=== PATIENT | female | born 1945 | race Caucasian/White ===

== ENCOUNTER → 2017-09-29 14:36 | Outpatient (CLI) | payer MEDICARE, SELFPAY | PROVIDERS: Family Provider Family Medicine Geriatric Medicine; PCP Family Medicine Geriatric Medicine; Visit Provider Anesthesiology Pain Medicine | DX: F11.20 Opioid dependence, uncomplicated (principal) ==

== ENCOUNTER → 2017-12-29 09:13 | Outpatient (CLI) | payer MEDICARE, SELFPAY ==
[2017-12-29 17:29] LABS: Absolute Lymphocyte Count 1.76 X10^3/ul (0.83-4.51); Absolute Neutrophil Count 4.9 X10^3/uL (2.0-7.7); Basophil# 0.01 X10^3/uL; Basophil% 0.1 % (0-1); Eosinophils% 1.3 % (0-5); Hemoglobin 14.4 g/dl (12.0-15.0); Lymphocyte # 1.76 X10^3/ul (4.0); Lymphocyte % 23.6 % (19-41); Mean Corp Hgb Conc 32.7 g/gl (32-36); Mean Corpuscular Hgb 32.6 pg (27.0-32.0); Mean Corpuscular Volume 99.5 fL (81-99); Mean Platelet Vol. 10.8 fl (6.2-12.0); Monocyte# 0.68 X10^3/uL; Monocyte% 9.1 % (0-10); Neutrophil % 65.6 % (47-70); Platelet Count 191 K/mm3 (150-450); RBC Distribution Width CV 14.6 % (11.6-14.6); RBC Distribution Width SD 52.4 fl (35.1-43.9); Red Blood Count 4.42 M/mm3 (4.2-5.4); White Blood Count 7.5 K/mm3 (4.4-11.0)
[2017-12-29 17:45] LABS: ALB/GLOB Ratio 1.1 RATIO (0.9-2.4); AST(SGOT) 19 U/L (15-37); Alanine Aminotransfer ALT/SGPT 22 U/L (13-56); Albumin, Serum 3.6 g/dL (3.2-5.0); Alkaline Phosphatase 88 U/L (45-117); Anion Gap 10 (5-15); BUN 20 mg/dL (7-18); BUN/Creat Ratio 22.1 RATIO (10-20); Calcium,Total 8.6 mg/dL (8.5-10.1); Chloride 115 mmol/L (98-107); EST Glomerular Filtration Rate 65 mL/min (>60); Est Glom Filt Rate - Afr Amer 79 mL/min (>60); Globulin 3.4 g/dL (2.2-4.2); Glucose 79 mg/dL (74-106); Potassium 3.7 mmol/L (3.5-5.1); Sodium Level 147 mmol/L (136-145); Thyroid Stim Hormone (TSH) 3.03 uIU/mL (0.358-3.74)
[2017-12-29 17:50] LABS: POSITIVE COUNT NO; POSITIVE DIFFERENTIAL NO; POSITIVE MORPHOLOGY NO
[2017-12-30 08:57] LABS: Vitamin D,25 Hydroxy 42.8 ng/mL (29.95-100.01)
== END ==
PROVIDERS: Family Provider Family Medicine Geriatric Medicine; PCP Family Medicine Geriatric Medicine; Visit Provider Family Medicine Geriatric Medicine
DX: E55.9 Vitamin D deficiency, unspecified (principal); R53.83 Other fatigue
CPT/HCPCS: 36415; 80053; 82306; 84443; 85025

== ENCOUNTER 2018-01-11 15:08 | Outpatient (RCR) | payer MEDICARE, SELFPAY ==
--- NOTE | 2018-01-11 16:09 | HP.PTEVAL_ITS ---
Patient's Visit Information MIRACLE WILSON is a 72 year old F referred to Physical Therapy by Abhay Real with a diagnosis of gait instability. Date of Evaluation: 01/11/18 Physical Therapist: Camden Vega DPT, OC - Visit Plan Frequency: 2 visits Duration: 1 Week Plan: Pt unable to afford co pay for approp frequency of PT. Agreeable to 2 more initial visists to teach and ensure safety with HEP for LE strength seated and at counter as able and for weight shifting to R LE. Include LB flexion ex also. Plese ensure safety and give pics. Pt then will perform at home and f/u a month down the road for recheck. I gave her AROM ankles, knees and hips and arm elevation today to do at each commercial. - Subjective Subjective: Legs are hurting terrible and limping for a couple years. Not getting around well. Chiropractor thinks her back is causing this. Has had back trouble for years with discs. worsening to the point where she cannot stand. Can't stand very long because back hurts(30 min) because she tired and painful in R Leg, L leg is fine. Sitting is not painful. Back does not hurt up and moving but it used to. Spends the day with boyfriend in trailer. 5 steps to enter with railing and needs to take it real slow. One step at t jaziel with L only. Does housework as best she can and dresses and bathes and bathroom by herself but has boyfriend if she needs help. Does not work, retired. Spends day watching TV and no regular exercises. Has fallen several times but none in the last few months. No spinning, no neuropathy. Legs may give out on her but a poor historian with the falls. Calls squad who helps her up. Uses wh walker 100% of time. - Pain R LEG Pain Intensity (Out of 10): 0 Pain Intensity Range: 0, 9 Comment: none seated. Pain is near knee. - Objective R pelvis elevated and L femur looks longer in sitting, R hip higher in stance and keeps heel off ground, does not trust R LE. R hip weak with marching in chair. sit to stand with two UE mod I and slow. Needs wh walker to stand for confidence, can stand without UE assist when cued. Will not take a step without wh walker, scared and untrusting of R LE. Stand to sit with two UE mod I. Walks 80 feet with wh walker today. Able to step up one step with either foot with walker but complete reliance on UE adn poor trust of R LE. Strength LE R: hip flexion 3, abd 3, ext 3, knee flexion and ext 3+ and ankle 4-. L hip 3+ and knees 3+ and ankles 4-. reflexes 0/3 B patella and achilles. Sensation WNL to gross light touch LE. LB AROM poor in extension, flexion is max limited and distrusting. SB R and L are max limited. Pt is afraid to move but not increased pain. - Goals Goal 1:: Walk 150 feet with wh walker and one step with min UE assist without increased pain Goal Time Frame: 4-6 Weeks Goal 2:: I approp HEP for LE strength and LB ROM and general activity Goal Time Frame: 4-6 Weeks Goal 3:: Pt report 50% improvement in R LE pain and 4/10 at worst. Goal Time Frame: 4-6 Weeks Goal 4:: Walk 5 steps without AD with HVAC SERVICES PROFESSIONAL mod I to show WB R LE confidence. Goal Time Frame: 4-6 Weeks - Rehabilitation Potential Physical Therapy Diagnosis: gait instability, poor trust R LE and weakness / pain here are problematic. Rehabilitation Potential: Questionable - Anticipated Interventions Patient/Client Instruction: Educate patient on: Condition, Plan of Care For the Purpose of:: To decrease pain, To increase ROM, To improve nutrient delivery to tissue, To improve ability of physical actions for home/community/ work/leisure Therapeutic Exercise to Include: Strength training, Balance training, Gait and locomotor training, Active ROM For the Purpose of:: To decrease pain, To decrease swelling/inflammation, To increase ROM, To improve nutrient delivery to tissue, To improve ability of physical actions for home/community/work/leisure, To improve gait and locomotor functions Thank you for the opportunity to evaluate your patient. For Medicare and Medicare HMO plans, please review the plan of care and approve it. It will need to be FAXED BACK to us at [phone] for Medicare purposes. Please let me know if there are questions or concerns regarding this plan of care. Physician Signature: Date:
--- NOTE | 2018-03-14 11:21 | HP.PTDCNRP_ITS ---
HP - Discharge Summary (1) - Patient Information MIRACLE WILSON was seen in my office for initial evaluation on 01/11/18. The following Plan of Care was established for this patient: Initial Frequency: 2 visits Initial Duration: 1 Week - Anticipated Interventions Patient/Client Instruction: Educate patient on: Condition, Plan of Care For the Purpose of:: To decrease pain, To increase ROM, To improve nutrient deli very to tissue, To improve ability of physical actions for home/community/work/leisure Therapeutic Exercise to Include: Strength training, Balance training, Gait and locomotor training, Active ROM For the Purpose of:: To decrease pain, To decrease swelling/inflammation, To increase ROM, To improve nutrient delivery to tissue, To improve ability of physical actions for home/community/work/leisure, To improve gait and locomotor functions This patient was last seen in our office 01/11/18. Pertinent comments regarding their Physical therapy will appear below: Pt seen for one visit and POC established for a couple visits(due to co-pay) to teach HEP. Patient did not attend either of those visits adn I will discontinue him due to nonattendance. At this point I will be discontinuing this patient from physical therapy. I would be happy to see this patient again in the future if found appropriate by the physician. Thank you! Camden Vega, DPT, OC
== END 2018-01-11 19:00 | disposition home or self-care (01) ==
LOC: PT 15:08
PROVIDERS: Family Provider Family Medicine Geriatric Medicine; PCP Family Medicine Geriatric Medicine; Visit Provider Family Medicine Geriatric Medicine
DX: R26.9 Unspecified abnormalities of gait and mobility (principal)
CPT/HCPCS: 97110; 97163

== ENCOUNTER 2018-10-23 15:06 | Observation (INO) | payer MEDICARE, SELFPAY ==
[2018-10-23 15:07] VITALS: BP 124/90; PULSE 115; RESP 16; TEMP 36.1; O2SAT 94; BMI 27.4
--- NOTE | 2018-10-23 16:43 | EKG12_ITS ---
Test Reason : ALT LOC Blood Pressure : / mmHG Vent. Rate : 089 BPM Atrial Rate : 089 BPM P-R Int : 182 ms QRS Dur : 098 ms QT Int : 372 ms P-R-T Axes : 054 137 028 degrees QTc Int : 452 ms Normal sinus rhythm Right axis deviation Abnormal ECG Low voltage Confirmed by MARIA TERESA HOLLEY ([id number]), industrial editor MILTON LYLE ([id number]) on 10/27/2018 11:18:03 AM Referred By: Cuong Alcazar Confirmed By:MARIA TERESA HOLLEY
--- NOTE | 2018-10-23 16:43 | CT_ITS ---
STUDY: CT BRAIN WITHOUT CONTRAST REASON FOR EXAM: Female, 72 years old. Altered mental status, dementia RADIATION DOSAGE (If Supplied By Facility): CTDIvol = ( 44.99 ) mGy, DLP = ( 762.36 ) mGycm TECHNIQUE: Transaxial CT imaging of the brain was performed without administration of intravenous contrast material. Individualized dose optimization techniques were used for this CT. COMPARISON: MRI February 11, 2017. FINDINGS: Normal soft tissue structures. Normal calvarium. There is mild cerebral atrophy with widening of the extra-axial spaces and ventricular dilatation. Normal white matter tracts of the cerebral hemispheres. There are small punctate calcifications of the basal ganglia which are seen in the aging brain as a normal variant. Normal brainstem. Normal cerebellum. There is no intracranial hemorrhage. There are no findings of an acute ischemic infarction. Normal visualized paranasal sinuses. CT/Brain/Head without Contrast IMPRESSION: Minimal atrophy no evidence of acute hemorrhage infarct or edema. Electronically Signed: Kathryn Espinoza MD at 17:39 EDT Tel , Service support ,
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
[2018-10-23 16:47] VITALS: PULSE 93; RESP 16; O2SAT 97
--- NOTE | 2018-10-23 17:30 | RAD_ITS ---
STUDY: X-RAY CHEST REASON FOR EXAM: Female, 72 years old. Altered level of consciousness TECHNIQUE: PA and lateral views of the chest. COMPARISON: None. FINDINGS: The lungs are clear and expanded. There is no demonstrated pleural abnormality. There is mild cardiomegaly. Normal mediastinum and aniket. Normal visualized pulmonary arteries. Normal visualized aortic arch and descending thoracic aorta. There are diffuse degenerative changes of the visualized thoracic spine. Normal visualized ribs, clavicles, and shoulders. There is no demonstrated abnormality of the visualized soft tissue structures of the upper abdomen. RAD/Chest PA and Lateral IMPRESSION: Mild cardiac enlargement, no evidence of acute focal infiltrate. Electronically Signed: Kathryn Espinoza MD at 17:40 EDT Tel , Service support ,
[2018-10-23 17:35] LABS: Absolute Lymphocyte Count 1.52 X10^3/ul (0.83-4.51); Basophil# 0.01 X10^3/uL; Basophil% 0.1 % (0-1); Eosinophil# 0.07 X10^3/uL; Hematocrit 43.8 % (37-47); Hemoglobin 14.5 g/dl (12.0-15.0); Lymphocyte # 1.52 X10^3/ul (4.0); Lymphocyte % 21.3 % (19-41); Mean Corp Hgb Conc 33.1 g/gl (32-36); Mean Corpuscular Volume 105.8 fL (81-99); Mean Platelet Vol. 11.3 fl (6.2-12.0); Monocyte# 0.56 X10^3/uL; Monocyte% 7.8 % (0-10); Neutrophil # 4.98 X10^3/uL (2.7-7.7); Neutrophil % 69.7 % (47-70); Platelet Count 193 K/mm3 (150-450); RBC Distribution Width CV 15.3 % (11.6-14.6); RBC Distribution Width SD 59.5 fl (35.1-43.9); Red Blood Count 4.14 M/mm3 (4.2-5.4); White Blood Count 7.2 K/mm3 (4.4-11.0)
[2018-10-23 17:36] LABS: POSITIVE COUNT NO; POSITIVE DIFFERENTIAL NO; POSITIVE MORPHOLOGY NO
[2018-10-23 17:49] LABS: ALB/GLOB Ratio 1.3 RATIO (0.9-2.4); AST(SGOT) 22 U/L (15-37); Alanine Aminotransfer ALT/SGPT 21 U/L (13-56); Albumin, Serum 3.9 g/dL (3.2-5.0); Alkaline Phosphatase 83 U/L (45-117); Anion Gap 5 (5-15); BUN 21 mg/dL (7-18); BUN/Creat Ratio 22.9 RATIO (10-20); Calcium,Total 8.7 mg/dL (8.5-10.1); Chloride 114 mmol/L (98-107); Creatinine, Serum 0.92 mg/dL (0.55-1.02); EST Glomerular Filtration Rate 64 mL/min (>60); Est Glom Filt Rate - Afr Amer 77 mL/min (>60); Estimated Creatinine Clearance 44.36 ml/min; Globulin 2.9 g/dL (2.2-4.2); Glucose 85 mg/dL (74-106); Potassium 3.1 mmol/L (3.5-5.1); Protein, Total 6.8 g/dL (6.4-8.2); Sodium Level 143 mmol/L (136-145)
[2018-10-23 18:08] LABS: Mucous, Urine 0 SEEN /hpf (<or=2+)
[2018-10-23 18:13] LABS: Color, Urine Yellow (Yellow); Glucose, Dipstick Normal (Normal); Ketone-Dipstick Negative (Negative); Leukocyte Esterase-Dipstick 500 /ul (Negative); Nitrite-Dipstick Negative (Negative); Occult Blood-Urine 25 /ul (Negative); Protein-Dipstick 30 mg/dl (Negative); Urine Bilirubin Dipstick Negative (Negative); Urine Clarity Cloudy (Clear); Urine Urobilinogen Normal (Normal)
[2018-10-23 18:31] LABS: Bacteria 4+ /hpf (None Seen); Red Blood Cells-Urine 0-5 SEEN /hpf (0-5); Squamous Epithelial Cells - UA 0-5 SEEN /hpf (5-10); White Blood Cells 10-25 SEEN /hpf (0-5)
--- NOTE | 2018-10-23 18:34 | CASEMGMT ---
RN LIZZ Assessment Introduced role of RN LIZZ to patient and patient [id number] Tamanna at bedside.? Patient is alert, Pleasantly Confused and participated in assessment to best of ability, most information and confirmation of information obtained from Dtr-in-law. ?Care providers, pharmacy, and demographics verified. Presentation: Per son increased confusion, h/o Dementia. Patient has had frequent falls and declining rapidly with ambulation with unsteady gait per Dtr-in-law. Re-Admit: No Barriers/Issues: Patient boyfriend/long time zoology technical officer is on Hospice at [facility] in Memory [facility]- [place]. Patient states that is where she wants to go on DC and states will not go anywhere else. CM did explain criteria for skilled need and if no skilled need it would be private pay. Patient kept referring wanting an Aide on DC for assistance with Bathing, CM explained that an Aide comes to current home, which patient adamant will not go back home. Wants to be with boyfriend until he passes. Per Dtr-In-Law patient does visit him at facility, however Dtr-in-law cautious on what to say in front of patient as she appears may get agitated. PCP: Abhay Real Chi Specialists: Pain Management, has had Steroid injection in past last one June 2017, told per Dr Real has Neuropathy and referred to some specialist. Preferred Pharmacy: [facility] [place] Insurance: [facility] Rx Benefit:?Yes LNOK: Son and Dtr-in-law Wm/Tamanna Pena LW/HPOA: No Living Arrangements:? Lives with son and Dtr-in-law in a Home, 2 steps to enter. ADL?s: Ambulates with a walker, Requires assistance with meals, stand by assist with bathing. Transportation: Son & Dtr-in-law DME: Walker, Shower Chair HHC: Past, [place] SNF: None Goal: See Above Issue DC PLAN: TBD. No anticipated needs as condition of s/s appear chronic in nature. CHRISTI Rey
[2018-10-23] MEDS: Cefazolin 1 GM/50 ML BAG IV (19:08)
[2018-10-23 19:09] VITALS: BP 112/81; PULSE 107; RESP 16; O2SAT 93
[2018-10-23 20:04] VITALS: BMI 32.6
[2018-10-23 20:12] VITALS: BP 108/77; PULSE 95; RESP 16; TEMP 36.7; O2SAT 96
[2018-10-23 20:17] VITALS: BMI 32.7
[2018-10-23 20:34] LABS: Thyroid Stim Hormone (TSH) 1.73 uIU/mL (0.358-3.74)
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
[2018-10-23] MEDS: Tolterodine Tartrate 4 MG CAP.SA PO (20:40)
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
[2018-10-23] MEDS: Acetaminophen 325 MG Tablet 650 MG PO (22:41)
[2018-10-24 04:35] VITALS: BP 103/68; PULSE 85; RESP 17; TEMP 36.6; O2SAT 98
[2018-10-24 05:59] LABS: Anion Gap 9 (5-15); BUN 23 mg/dL (7-18); BUN/Creat Ratio 27.2 RATIO (10-20); Calcium,Total 8.2 mg/dL (8.5-10.1); Chloride 117 mmol/L (98-107); Creatinine, Serum 0.85 mg/dL (0.55-1.02); EST Glomerular Filtration Rate 70 mL/min (>60); Est Glom Filt Rate - Afr Amer 85 mL/min (>60); Estimated Creatinine Clearance 50.22 ml/min; Glucose 78 mg/dL (74-106); Potassium 3.6 mmol/L (3.5-5.1); Sodium Level 147 mmol/L (136-145)
[2018-10-24 09:45] VITALS: BP 106/76; PULSE 101; RESP 16; TEMP 36.5; O2SAT 94
[2018-10-24] MEDS: Enoxaparin 40 MG/0.4 ML Syringe SC (09:47)
[2018-10-24] MEDS: Escitalopram Oxalate 10 MG Tablet PO (09:47)
[2018-10-24] MEDS: Ciprofloxacin 400 MG/200 ML BAG 200 MG IV ×2 (09:48→21:00)
[2018-10-24] MEDS: 0.9% NaCl IVPB Med Flush (250 mL) 15 ML IV (09:52)
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
--- NOTE | 2018-10-24 14:14 | CASEMGMT ---
Social Work Note Pt gave this worker permission to speak with her son Wm. Wm present at [facility]. JOHAN met with Wm, introduced self and role at [facility]. JOHAN updated Wm that pt is wanting [facility] at discharge, that [facility] isn't in contract with [employer], but that pt could potentially go to [facility] under pending medicaid number. JOHAN informed Wm that Pt will need to completed Medicaid application and then this worker would fax application to [facility] and then try to get pt to [facility] under pending medicaid number. JOHAN informed Wm though that if pt doesn't qualify for Medicaid, pt would be responsible to pay bill for stay at [facility]. JOHAN did educate Wm on TCU at [facility], Wm states that [facility] would probably be better for pt so she is able to see Riaz. Riaz states that his Tamanna should be able to assist with Medicaid application if needed. JOHAN received call from Debbie at [facility] stating they are able to accept pt under pending medicaid. JOHAN met with pt, assisted pt with completing Medicaid application. Pt unsure on income that Wm and Tamanna make a month, gave this worker permission to call Tamanna. JOHAN placed a call to pt's daughter in law Tamanna, left message requesting call back to provided information regarding income. JOHAN placed a call to Tamanna Rios at [facility], updated her on pt wanting to go to [facility] under pending medicaid. JOHAN faxed Medicaid application to Tamanna Rios at [facility]. Plan: SW Will need to get pending medicaid number from [facility] and then complete LOC for pt to go to [facility]. Reina Connelly VP REVENUE CYCLE, REPLENISHER
[2018-10-24 15:47] VITALS: BP 101/76; PULSE 86; RESP 16; TEMP 36.7; O2SAT 97
--- NOTE | 2018-10-24 16:06 | CASEMGMT ---
RN LIZZ NOTE: To room to talk with pt. Pt sitting up in recliner chair. Reviewed ROSS form with pt and questions answered. Denies having any further questions at this time. Form signed by pt, copy made and placed on chart, and pt given original. Pt also given [facility] inpatient or outpatient info sheets. Pt instructed to ask for CM if she has any further questions. Pt voices understanding.
--- NOTE | 2018-10-24 16:11 | CASEMGMT ---
Social Work Note Pt had questions regarding SENIOR LIVING and Medicaid. SW met with pt. SW informed pt that once pt gets to [facility], they have an option of SENIOR LIVING should pt need SENIOR LIVING once she is no longer skillable. SW informed pt that there will be at SW at [facility] that will be able to meet with pt in regards to discharge plans from [facility] and will continue to assist pt with Medicaid process. Pt states understanding. Plan: [facility] pending LOC. SW will need medicaid number and will need to complete LOC. Reina Connelly CHEMICAL APPLICATOR, PREFORM PLATE MAKER
[2018-10-24 20:54] VITALS: BP 101/70; PULSE 79; RESP 16; TEMP 36.7; O2SAT 93
[2018-10-24] MEDS: Tolterodine Tartrate 4 MG CAP.SA PO (21:02)
[2018-10-24] MEDS: 0.9% NaCl Peripheral Flush Adult/Peds IV (22:23)
[2018-10-25 03:00] VITALS: BP 106/68; PULSE 80; RESP 16; TEMP 36.3; O2SAT 96
--- NOTE | 2018-10-25 09:10 | CASEMGMT ---
Social Work Note JOHAN received message from pt's KOURTNEY Nolen. Per Tamanna pt had to move in with them because pt didn't have anywhere else to go. Tamanna states that they don't pay for anything for pt and pt doesn't help them out. Tamanna states if she was to provide her and Wm' income, pt wouldn't qualify for Medicaid and states she doesn't want to provide income information. JOHAN placed a call to Tamanna Rios at [facility], updated her on above information. Tamanna states should be fine without son and DIL income information but will need to review application. Tamanna states to hopefully have pending medicaid number this morning. Plan: [facility] pending medicaid number and LOC Reina Connelly EXCHANGE ADMINISTRATOR, MEDICAL INSURANCE CODING SPECIALIST
[2018-10-25 10:00] VITALS: BP 137/76; PULSE 96; RESP 16; TEMP 36.7; O2SAT 96
--- NOTE | 2018-10-25 10:37 | PCM.EXTCARCO ---
- Diet 10/23/18 19:55 Diet: Regular Diet - Routine Orders/Code Status Suppository Type: Dulcolax 10mg Suppository Frequency: Daily PRN Routine Lab Work: CBC - 5 days, BMP - 5 days Code Status: Full Code - Wound(s) LEFT FOOT Wound Type: Abrasion - Therapies Physical Therapy: Eval and Treat Occupational Therapy: Eval and Treat - Problem/Diagnosis (1) UTI (urinary tract infection) Status: Acute Current Visit: Yes (2) Encephalopathy Status: Acute Current Visit: Yes (3) Depression Status: Chronic Current Visit: Yes (4) Obesity Status: Chronic Current Visit: Yes (5) Debility Status: Chronic Current Visit: Yes - Allergies/Procedures Done in Hospital Allergies/Adverse Reactions: Allergies Penicillins Allergy (Verified 10/23/18 15:09) Unknown - Type of Care/Length of Stay Estimated LOS: Convalescent Care Less Than 30 days Type of Care Needed: Skilled Rehab Potential: Fair Prognosis: Fair - Additional Orders/Day of Discharge Day of Discharge: 10/25/18 - Dietary and Speech Recommendations Dietitian Recommendations/Changes: D/c-ed Ensure Enlive w/medpass. Please weigh pt to establish current body weight. - Follow Up Care Primary Care Physician: Abhay Real Chi, MD [Primary Care Provider] - Please follow up with your Primary Care Physician in: 1-2 weeks
[2018-10-25] MEDS: Ciprofloxacin 400 MG/200 ML BAG 200 MG IV (10:57)
[2018-10-25] MEDS: Escitalopram Oxalate 10 MG Tablet PO (10:58)
[2018-10-25] MEDS: Enoxaparin 40 MG/0.4 ML Syringe SC (10:58)
--- NOTE | 2018-10-25 11:23 | CASEMGMT ---
Social Work Note SW received call from Tamanna Rios at [facility] with pending medicaid number [id number]. SW completed LOC, faxed to [facility]. SW to wait to receive LOC from [facility]. Once LOC is received, pt will be able to discharge to [facility]. Plan: Pt will need LOC, once LOC is received pt is able to discharge to [facility] Reina Connelly IC DESIGN ENGINEER, LACQUER COATER
--- NOTE | 2018-10-25 12:05 | PN_ITS ---
<Kartik Murray - Last Filed: 10/25/18 12:03> Patient Problems: Active and Suspected Problems UTI (urinary tract infection) (Acute) Encephalopathy (Acute) Confusion (Acute) Agitation (Acute) Hypokalemia (Acute) Subjective: Pt continues to have urinary frequency - states up about 20 times last night. No dysuria. No fever/chills. Confusion has resolved. She has difficulty sleeping, stating she has insomnia but does not take anything for it. She is willing to try melatonin. - Physical Exam General: Alert, Oriented x3, Cooperative HEENT: Atraumatic, PERRLA, EOMI, Normocephalic Neck: Supple, No JVD, Negative Carotid Bruits Lungs: Clear to auscultation, Normal air movement Cardiovascular: Regular rate, No murmurs Abdomen: Bowel Sounds Present, Soft, Non Tender, Obese Extremities: No edema, Capillary Refill Less than 3 Seconds Skin: No rashes, No breakdown Musculoskeletal: No Tenderness to Palpation of Joints or Extremities Neurological: Cranial nerves II-XII grossly intact Psych/Mental Status: Normal Affect, Appropriate, Alert and oriented to time, place, person, mood and affect Vital Signs Temp Pulse Resp BP Pulse Ox 98.1 F 96 16 137/76 H 96 10/25/18 10:00 10/25/18 10:00 10/25/18 10:00 10/25/18 10:00 10/25/18 10:00 Oxygen Delivery Method Room Air Weight: 184 lb 8.43 oz Body Mass Index (BMI) 32.6 Intake and Output for Last 24 Hours 10/23/18 10/24/18 10/25/18 23:59 23:59 23:59 Intake Total 320 / 320 1027 / 1027 120 / 120 Output Total 100 / 100 600 / 600 Balance 320 / 320 927 / 927 -480 / -480 Medical Necessity - Tobacco Use Smoking Status: Never smoker Tobacco Use: Non-smoker Assessment/Plan All Active Problems UTI (urinary tract infection) (Acute) Encephalopathy (Acute) Confusion (Acute) Agitation (Acute) uti severe sepsis (Resolved) Wound, open, leg (Resolved) Hypokalemia (Acute) 1. Acute metabolic encephalopathy secondary to acute cystitis-continue IV cipro Await final culture and sensitivity. Recent urinary symptoms including urgency, frequency, nocturia. No fever or leukocytosis. She is mildly tacky. She does also have a history of overactive bladder - continue detrol - she actually has had this prescribed in the past but recently has not been on it at home. Trop normal, ammonia normal, TSH normal 2. Depression-Lexapro 3. Hypokalemia-replete 4. Obesity s/p gastric bypass - consult to director hedis. Chronic diarrhea. 5. Insomnia - melatonin added DVT prophylaxis:lovenox Discharge planning: residential This patient was seen by Kartik Murray PA-C under the supervision of Doctor Shayne. <Ludivina Bella - Last Filed: 10/25/18 12:09> - Physical Exam Vital Signs Temp Pulse Resp BP Pulse Ox 98.1 F 96 16 137/76 H 96 10/25/18 10:00 10/25/18 10:00 10/25/18 10:00 10/25/18 10:00 10/25/18 10:00 Oxygen Delivery Method Room Air Weight: 184 lb 8.43 oz Body Mass Index (BMI) 32.6 Intake and Output for Last 24 Hours 10/23/18 10/24/18 10/25/18 23:59 23:59 23:59 Intake Total 320 / 320 1027 / 1027 120 / 120 Output Total 100 / 100 600 / 600 Balance 320 / 320 927 / 927 -480 / -480 Assessment/Plan Patient seen by Kartik Murray PA-C under my supervision Patient seen and examined. She still complains of frequency. She is supposed to be on Ditropan, but had not been taking it at home. Review of systems is otherwise negative. o/e: Vital Signs Height 5 ft 3 in Weight: 184 lb 8.43 oz Weight in Pounds 184.5 lbs Pulse Ox 96 Temperature 98.1 F Pulse Rate 96 Respiratory Rate 16 Blood Pressure 137/76 Blood Pressure Position Sitting General: Alert, Oriented x3, Cooperative HEENT: Atraumatic, PERRLA, EOMI, Normocephalic Neck: Supple, No JVD, Negative Carotid Bruits Lungs: Clear to auscultation, Normal air movement Cardiovascular: Regular rate, No murmurs Abdomen: Bowel Sounds Present, Soft, Non Tender, Obese Extremities: Capillary Refill Less than 3 Seconds, Edema - Some swelling of the left lower extremity Skin: No rashes, No breakdown Musculoskeletal: No Tenderness to Palpation of Joints or Extremities Neurological: Cranial nerves II-XII grossly intact Psych/Mental Status: Normal Affect, Appropriate, Alert and oriented to time, place, person, mood and affect Plan is to continue IV ciprofloxacin for one more day. Urine cultures still pending. Continue ditropan. Awaiting placement in [facility]. Rest of management as per Kartik Murray PA-C's note, which I have reviewed and endorse. Code Visit OBSV E&M: 40525 Subsequent observation care L2
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
[2018-10-25 16:00] VITALS: BP 116/79; PULSE 95; RESP 18; TEMP 36.6; O2SAT 97
--- NOTE | 2018-10-25 16:15 | CASEMGMT ---
Social Work Note SW received LOC, pt is able to discharge to [facility] today. Physician updated. JOHAN faxed completed discharge paperwork to Debbie at [facility] including transfer to extended care facility, LOC results, signed medication list and any scripts. Original in SNF folder and copy on pt's chart. JOHAN completed PAS/RR in [facility]. Original in SNF folder and copy on pt's chart. JOHAN called Mehdi to arrange transportation, no wheelchair van available. JOHAN met with pt. Pt on phone with her son Wm. JOHAN informed Pt that if pt was to be transported via wheelchair van she would get a bill as her insurance doesn't pay for wheelchair van and that it may be difficult to find transportation at this time of day. Pt asked this worker if her son Wm can transport, JOHAN informed pt that Wm is able to transport her. Pt handed this worker the phone. JOHAN spoke with Wm, updated him on discharge to [facility] today. Wm confirms he is able to transport to and will be at [facility] in an hour. JOHAN updated RN, and Debbie at [facility] of discharge and transportation time with pt's son transporting pt. JOHAN called Kendal Pruett with [facility], left message, informing her that pt is being discharged to [facility] today. Plan: Pt to discharge to [facility] today under intermediate level of care under pending Medicaid. Pt's son Wm to transport pt. Reina Connelly MAMMALOGY TEACHER, DEPUTY ADMINISTRATOR
--- NOTE | 2018-10-25 16:17 | PCM.DC.SUM ---
<Kartik Murray - Last Filed: 10/25/18 16:17> Discharge Date and Diagnosis - Problem List Patient Problems: Active and Suspected Problems UTI (urinary tract infection) (Acute) Encephalopathy (Acute) Confusion (Acute) Agitation (Acute) Hypokalemia (Acute) Date of Admission: 10/23/18 Date of Discharge: 10/25/18 - Primary Discharge Diagnosis Active and Suspected Problems Acute metabolic encephalopathy 2/2 Acute cystitis Overactive bladder Obesity s/p gastric bypass Depression - Secondary Discharge Diagnosis Chronic Problems Depression (Chronic) Obesity (Chronic) Debility (Chronic) Hospital Course and Treatment Imaging Results: CT/Brain/Head without Contrast IMPRESSION: Minimal atrophy no evidence of acute hemorrhage infarct or edema. RAD/Chest PA and Lateral IMPRESSION: Mild cardiac enlargement, no evidence of acute focal infiltrate. Operations: None Procedures: None Summary of Care Provided: Hospital Course: The patient is a 72 year old F with pmhx of overactive bladder, obesity s/p prior gastric bypass, depression, who presented to the ER with increasingly altered mental status at home. She had been speeding through the [employer] [facility] and had no idea where she was when she was pulled over, and had been increasingly agitated and combative at home. In the ER she had negative CT brain, + UA, negative ammonia, neg trop, neg TSH. She was admitted for Acute metabolic encephalopathy 2/2 UTI with functional decline at home. She did admit to urinary symptoms including increased frequency and urgency. No fever or leukocytosis, she was mildly tachycardic. She was treated with cipro as prior cultures showed E coli with cipro sensitivity. At this time urine culture shows GNR lactose employment and claims aide, most likely E coli. Her agitation and confusion resolved. She remained significantly debilitated and with her functional decline at home she was felt to need at least short term rehab with shelter. She was transitioned to oral cipro and will complete 5 days total of this. Final C/S pending. She was discharged to SNF in stable condition. She will need follow up with her PCP in 2 weeks. This patient was seen by Kartik Murray PA-C under the supervision of Dr. Bella. [] Patient Problems: Active and Suspected Problems UTI (urinary tract infection) (Acute) Encephalopathy (Acute) Confusion (Acute) Agitation (Acute) Hypokalemia (Acute) - Physical Exam General: Alert, Oriented x3, Cooperative HEENT: Atraumatic, PERRLA, EOMI, Normocephalic Neck: Supple, No JVD, Negative Carotid Bruits Lungs: Clear to auscultation, Normal air movement Cardiovascular: Regular rate, No murmurs Abdomen: Bowel Sounds Present, Soft, Non Tender, Obese Extremities: No edema, Capillary Refill Less than 3 Seconds Skin: No rashes, No breakdown Musculoskeletal: No Tenderness to Palpation of Joints or Extremities Neurological: Cranial nerves II-XII grossly intact Psych/Mental Status: Normal Affect, Appropriate, Alert and oriented to time, place, person, mood and affect Vital Signs Temp Pulse Resp BP Pulse Ox 97.8 F 95 18 116/79 97 10/25/18 16:00 10/25/18 16:00 10/25/18 16:00 10/25/18 16:00 10/25/18 16:00 Oxygen Delivery Method Room Air Weight: 184 lb 8.43 oz Body Mass Index (BMI) 32.6 Intake and Output for Last 24 Hours 10/23/18 10/24/18 10/25/18 23:59 23:59 23:59 Intake Total 320 / 320 1027 / 1027 120 / 120 Output Total 100 / 100 600 / 600 Balance 320 / 320 927 / 927 -480 / -480 Microbiology Past 72 Hours 10/23/18 15:00 Urine Culture - Preliminary Urine, Clean Catch GNR lactose employment and claims aide GNR lactose employment and claims aide#2 Discharge Diet: Low fat/ Low Cholesterol, 2000 mg Sodium Diet Discharge Activity: May Not Drive Home Medications: Medications to take at Discharge Escitalopram Oxalate [Lexapro] 10 mg PO DAILY 10/23/18 Potassium Chloride [Klor-Con M20] 20 meq PO BID 10/23/18 Tolterodine Tartrate [Tolterodine Tartrate ER] 4 mg PO QHS 10/23/18 Acetaminophen [Tylenol Tablet] 650 mg PO Q6H PRN PRN tablet 10/25/18 Ciprofloxacin [Cipro] 500 mg PO BID #6 tablet 10/25/18 Melatonin 3 mg PO QHS tablet 10/25/18 Following Prescrptions Were Given to Patient: Ciprofloxacin [Cipro] 500 mg PO BID #6 tablet Primary Care Physician: Abhay Real Chi, MD [Primary Care Provider] - Please follow up with your Primary Care Physician in: 1-2 weeks [facility]position: [facility] facility Minutes spent on discharge:: 35 Patient Condition:: Stable Medical Necessity - Tobacco Use Smoking Status: Never smoker Tobacco Use: Non-smoker Meaningful Use Info Meaningful Use Diagnoses (Choose all that apply): None applicable <Ludivina Bella - Last Filed: 10/25/18 16:32> Discharge Date and Diagnosis - Primary Discharge Diagnosis Active and Suspected Problems UTI (urinary tract infection) (Acute) Encephalopathy (Acute) Confusion (Acute) Agitation (Acute) Hypokalemia (Acute) - Secondary Discharge Diagnosis Chronic Problems Depression (Chronic) Obesity (Chronic) Debility (Chronic) Hospital Course and Treatment Summary of Care Provided: Patient seen by Kartik Murray PA-C under my supervision The patient is a 72 year old F with a PMH as listed who was admitted with a complaint of altered mental status after she was found speeding through the [facility] [employer] and was pulled over. She was found to be confused. LAbs showed evidence of UTI. She was admitted and managed for acute metabolic encephalopathy due to UTI. She was hydrated with IV fluids and started on IV ciprofloxacin based on previous culture results for UTI. Urine culture was obtained which showed gram-negative lactose employment and claims aide time of discharge with sensitivities pending. Patient remained stable and was skilled for SNF. She was discharged to the SNF on 10/25/2018 with a prescription for p.o. ciprofloxacin. She is to follow-up with her primary care doctor within 1 week. Patient seen and examined prior to discharge. She had no complaints and felt well. Review of systems otherwise negative. Labs and vitals reviewed. Home medications reviewed and reconciled. o/e: Vital Signs Height 5 ft 3 in Weight: 184 lb 8.43 oz Weight in Pounds 184.5 lbs Pulse Ox 97 Temperature 97.8 F Pulse Rate 95 Respiratory Rate 18 Blood Pressure 116/79 Blood Pressure Position Semi-Fowlers [] General: Alert, Oriented x3, Cooperative HEENT: Atraumatic, PERRLA, EOMI, Normocephalic Neck: Supple, No JVD, Negative Carotid Bruits Lungs: Clear to auscultation, Normal air movement Cardiovascular: Regular rate, No murmurs Abdomen: Bowel Sounds Present, Soft, Non Tender, Obese Extremities: Capillary Refill Less than 3 Seconds, Skin: No rashes, No breakdown Musculoskeletal: No Tenderness to Palpation of Joints or Extremities Neurological: Cranial nerves II-XII grossly intact Psych/Mental Status: Normal Affect, Appropriate, Alert and oriented to time, place, person, mood and affect Plan as above. Rest as per Kartik Murray PA-C's note, which I have reviewed and endorse. - Physical Exam Vital Signs Temp Pulse Resp BP Pulse Ox 97.8 F 95 18 116/79 97 10/25/18 16:00 10/25/18 16:00 10/25/18 16:00 10/25/18 16:00 10/25/18 16:00 Oxygen Delivery Method Room Air Weight: 184 lb 8.43 oz Body Mass Index (BMI) 32.6 Intake and Output for Last 24 Hours 10/23/18 10/24/18 10/25/18 23:59 23:59 23:59 Intake Total 320 / 320 1027 / 1027 120 / 120 Output Total 100 / 100 600 / 600 Balance 320 / 320 927 / 927 -480 / -480 Microbiology Past 72 Hours 10/23/18 15:00 Urine Culture - Preliminary Urine, Clean Catch GNR lactose employment and claims aide GNR lactose employment and claims aide#2 Code Visit OBSV E&M: 84054 Observation care discharge
--- NOTE | 2018-10-25 16:24 | DS.PCM_ITS ---
<Kartik Murray - Last Filed: 10/25/18 16:17> Discharge Date and Diagnosis - Problem List Patient Problems: Active and Suspected Problems UTI (urinary tract infection) (Acute) Encephalopathy (Acute) Confusion (Acute) Agitation (Acute) Hypokalemia (Acute) Date of Admission: 10/23/18 Date of Discharge: 10/25/18 - Primary Discharge Diagnosis Active and Suspected Problems Acute metabolic encephalopathy 2/2 Acute cystitis Overactive bladder Obesity s/p gastric bypass Depression - Secondary Discharge Diagnosis Chronic Problems Depression (Chronic) Obesity (Chronic) Debility (Chronic) Hospital Course and Treatment Imaging Results: CT/Brain/Head without Contrast IMPRESSION: Minimal atrophy no evidence of acute hemorrhage infarct or edema. RAD/Chest PA and Lateral IMPRESSION: Mild cardiac enlargement, no evidence of acute focal infiltrate. Operations: None Procedures: None Summary of Care Provided: Hospital Course: The patient is a 72 year old F with pmhx of overactive bladder, obesity s/p prior gastric bypass, depression, who presented to the ER with increasingly altered mental status at home. She had been speeding through the [employer] [facility] and had no idea where she was when she was pulled over, and had been increasingly agitated and combative at home. In the ER she had negative CT brain, + UA, negative ammonia, neg trop, neg TSH. She was admitted for Acute metabolic encephalopathy 2/2 UTI with functional decline at home. She did admit to urinary symptoms including increased frequency and urgency. No fever or leukocytosis, she was mildly tachycardic. She was treated with cipro as prior cultures showed E coli with cipro sensitivity. At this time urine culture shows GNR lactose sales communications manager, most likely E coli. Her agitation and confusion resolved. She remained significantly debilitated and with her functional decline at home she was felt to need at least short term re[facility]. She was transitioned to oral cipro and will complete 5 days total of this. Final C/S pending. She was discharged to SNF in stable condition. She will need follow up with her PCP in 2 weeks. This patient was seen by Kartik Murray PA-C under the supervision of Dr. Bella. [] Patient Problems: Active and Suspected Problems UTI (urinary tract infection) (Acute) Encephalopathy (Acute) Confusion (Acute) Agitation (Acute) Hypokalemia (Acute) - Physical Exam General: Alert, Oriented x3, Cooperative HEENT: Atraumatic, PERRLA, EOMI, Normocephalic Neck: Supple, No JVD, Negative Carotid Bruits Lungs: Clear to auscultation, Normal air movement Cardiovascular: Regular rate, No murmurs Abdomen: Bowel Sounds Present, Soft, Non Tender, Obese Extremities: No edema, Capillary Refill Less than 3 Seconds Skin: No rashes, No breakdown Musculoskeletal: No Tenderness to Palpation of Joints or Extremities Neurological: Cranial nerves II-XII grossly intact Psych/Mental Status: Normal Affect, Appropriate, Alert and oriented to time, place, person, mood and affect Vital Signs Temp Pulse Resp BP Pulse Ox 97.8 F 95 18 116/79 97 10/25/18 16:00 10/25/18 16:00 10/25/18 16:00 10/25/18 16:00 10/25/18 16:00 Oxygen Delivery Method Room Air Weight: 184 lb 8.43 oz Body Mass Index (BMI) 32.6 Intake and Output for Last 24 Hours 10/23/18 10/24/18 10/25/18 23:59 23:59 23:59 Intake Total 320 / 320 1027 / 1027 120 / 120 Output Total 100 / 100 600 / 600 Balance 320 / 320 927 / 927 -480 / -480 Microbiology Past 72 Hours 10/23/18 15:00 Urine Culture - Preliminary Urine, Clean Catch GNR lactose sales communications manager GNR lactose sales communications manager#2 Discharge Diet: Low fat/ Low Cholesterol, 2000 mg Sodium Diet Discharge Activity: May Not Drive Home Medications: Medications to take at Discharge Escitalopram Oxalate [Lexapro] 10 mg PO DAILY 10/23/18 Potassium Chloride [Klor-Con M20] 20 meq PO BID 10/23/18 Tolterodine Tartrate [Tolterodine Tartrate ER] 4 mg PO QHS 10/23/18 Acetaminophen [Tylenol Tablet] 650 mg PO Q6H PRN PRN tablet 10/25/18 Ciprofloxacin [Cipro] 500 mg PO BID #6 tablet 10/25/18 Melatonin 3 mg PO QHS tablet 10/25/18 Following Prescrptions Were Given to Patient: Ciprofloxacin [Cipro] 500 mg PO BID #6 tablet Primary Care Physician: Abhay Real Chi, MD [Primary Care Provider] - Please follow up with your Primary Care Physician in: 1-2 weeks Disposition: Half-Way facility Minutes spent on discharge:: 35 Patient Condition:: Stable Medical Necessity - Tobacco Use Smoking Status: Never smoker Tobacco Use: Non-smoker Meaningful Use Info Meaningful Use Diagnoses (Choose all that apply): None applicable <Ludivina Bella - Last Filed: 10/25/18 16:32> Discharge Date and Diagnosis - Primary Discharge Diagnosis Active and Suspected Problems UTI (urinary tract infection) (Acute) Encephalopathy (Acute) Confusion (Acute) Agitation (Acute) Hypokalemia (Acute) - Secondary Discharge Diagnosis Chronic Problems Depression (Chronic) Obesity (Chronic) Debility (Chronic) Hospital Course and Treatment Summary of Care Provided: Patient seen by Kartik Murray PA-C under my supervision The patient is a 72 year old F with a PMH as listed who was admitted with a complaint of altered mental status after she was found speeding through the [facility] and was pulled over. She was found to be confused. LAbs showed evidence of UTI. She was admitted and managed for acute metabolic encephalopathy due to UTI. She was hydrated with IV fluids and started on IV ciprofloxacin based on previous culture results for UTI. Urine culture was obtained which showed gram-negative lactose sales communications manager time of discharge with sensitivities pending. Patient remained stable and was skilled for SNF. She was discharged to the SNF on 10/25/2018 with a prescription for p.o. ciprofloxacin. She is to follow-up with her primary care doctor within 1 week. Patient seen and examined prior to discharge. She had no complaints and felt well. Review of systems otherwise negative. Labs and vitals reviewed. Home medications reviewed and reconciled. o/e: Vital Signs Height 5 ft 3 in Weight: 184 lb 8.43 oz Weight in Pounds 184.5 lbs Pulse Ox 97 Temperature 97.8 F Pulse Rate 95 Respiratory Rate 18 Blood Pressure 116/79 Blood Pressure Position Semi-Fowlers [] General: Alert, Oriented x3, Cooperative HEENT: Atraumatic, PERRLA, EOMI, Normocephalic Neck: Supple, No JVD, Negative Carotid Bruits Lungs: Clear to auscultation, Normal air movement Cardiovascular: Regular rate, No murmurs Abdomen: Bowel Sounds Present, Soft, Non Tender, Obese Extremities: Capillary Refill Less than 3 Seconds, Skin: No rashes, No breakdown Musculoskeletal: No Tenderness to Palpation of Joints or Extremities Neurological: Cranial nerves II-XII grossly intact Psych/Mental Status: Normal Affect, Appropriate, Alert and oriented to time, place, person, mood and affect Plan as above. Rest as per Kartik Murray PA-C's note, which I have reviewed and endorse. - Physical Exam Vital Signs Temp Pulse Resp BP Pulse Ox 97.8 F 95 18 116/79 97 10/25/18 16:00 10/25/18 16:00 10/25/18 16:00 10/25/18 16:00 10/25/18 16:00 Oxygen Delivery Method Room Air Weight: 184 lb 8.43 oz Body Mass Index (BMI) 32.6 Intake and Output for Last 24 Hours 10/23/18 10/24/18 10/25/18 23:59 23:59 23:59 Intake Total 320 / 320 1027 / 1027 120 / 120 Output Total 100 / 100 600 / 600 Balance 320 / 320 927 / 927 -480 / -480 Microbiology Past 72 Hours 10/23/18 15:00 Urine Culture - Preliminary Urine, Clean Catch GNR lactose sales communications manager GNR lactose sales communications manager#2 Code Visit OBSV E&M: [id number] Observation care discharge
--- NOTE | 2018-10-25 17:53 | NURSING ---
REPORT CALLED TO ISIDRO AT [facility]. PT WILL BE TRANSPORTED TO [facility] BY HER SON BARBARA CLARK.
[2018-10-27 03:40] LABS: Rapid Plasmin Reagin (RPR) NONREACTIVE (NONREACTIVE)
== END 2018-10-25 18:12 | disposition skilled nursing facility (03) ==
LOC: ED 18:50 → MS3 19:31
PROVIDERS: Admitting Provider Internal Medicine; Emergency Provider Emergency Medicine; Family Provider Family Medicine Geriatric Medicine; PCP Family Medicine Geriatric Medicine; Referring Provider Internal Medicine; Visit Provider Student in an Organized Health Care Education/Training Program
DX: N30.00 Acute cystitis without hematuria (principal); G93.41 Metabolic encephalopathy; N32.81 Overactive bladder; Z98.84 Bariatric surgery status; E66.9 Obesity, unspecified; Z68.32 Body mass index [BMI] 32.0-32.9, adult; Z71.3 Dietary counseling and surveillance; F32.9 Major depressive disorder, single episode, unspecified; E87.6 Hypokalemia; Z79.899 Other long term (current) drug therapy
CPT/HCPCS: 36415; 70450; 71046; 80048; 80053; 81001; 82140; 84443; 84484; 85025; 86592; 87077; 87086; 87088; 87186; 93005; 96365; 96366; 96367; 96372; 97162; 97166; 97530; 97535; 97802; 99218; 99285; J7050; P9612; A4216; G0378; J0744